=== PATIENT | female | born 1985 | race Asian ===

== ENCOUNTER 2024-07-28 10:33 | Emergency (ER) | payer BC, OTHER, SELFPAY ==
[2024-07-28 10:34] VITALS: BP 155/100
--- NOTE | 2024-07-28 11:33 | ED.GENMED ---
History of Present Illness
General
Chief Complaint: Crisis Evaluation
Source: patient and significant other
Exam Limitations: none and other (Language Line Bulgarian forepart reducer #[id number] utilized)
Time Seen by Provider: 07/28/24 10:58
Nursing documentation reviewed up to this point in time: agreed with
History of Present Illness
History of Present Illness:
Patient is a 39-year-old female with past medical history of schizophrenia on Abilify and hydroxyzine for the past 2 years presents to the emergency department accompanied by her and 2 children for evaluation. reports that the
patient has grown increasingly paranoid over the past 15 days. reports that the patient thinks that there are cameras in different things such as in their smoke detector in their home. also reports the patient has grown
increasingly suspicious of their very friendly neighbors. reports that the patient has been having more negative thoughts. reports the patient has also been calling the police multiple times a day to discuss mundane topics such as
why Sid was elected president and why her son is not getting taught Azeri in public school. reports that the police have been very nice to her and told him that [facility] has good psychiatric resources and advised him to bring
the patient here which he did today. been reports that the patient has never tried to hurt herself, himself or anyone else. He reports that he is not concerned for his safety or the kids safety. He is not concerned that the patient is
going to harm herself at all and denies that the patient has made statements about harming herself or any others or made any gestures indicating this. notes that the patient is also questioning whether she truly has schizophrenia and
whether she needs her medication. However, he reports that he feels confident that she has been taking her medication as prescribed. He notes the patient was hospitalized in the psychiatric unit for a month at [facility] approximately 2
years ago at which time she had been exhibiting similar behaviors.
Patient herself reports that she is frustrated that her is always home and trying to take care of her. He reports that he was not always like this. She reports that he she wanted to go on vacation this past summer but he would not take
her. She denies that she wants to hurt or harm herself in any way. She denies that she wants to hurt or harm anyone else. She also denies any symptoms such as fevers, chills, chest pain, shortness of breath, abdominal pain, nausea, vomiting,
change in her bowel habits.
notes that he did try to get in touch with the patient's mental health specialist but they could not get her in for a month. He also inquired on whether he could increase the patient's Abilify however they told him that he should not do it
without seeing a doctor first.
Past History
Past History
ED Past Medical History: Psychiatric (Schizophrenia)
ED Past Surgical History: None
Patient has exhibited threatening behavior?: No
Social History
Tobacco: Non-smoker
Alcohol: None
Drug: None
Personal:
Living: with family
Review of Systems
Review of Systems
Allergies reviewed?: Yes
Other source history: family
All Other Systems: ROS reviewed and negative except as documented in HPI and ROS
Constitutional: Reports no symptoms
EENT: Reports no symptoms
Respiratory: Reports no symptoms
Cardiac: Reports no symptoms
ABD/GI: Reports no symptoms
: Reports no symptoms
Musculoskeletal: Reports no symptoms
Skin: Reports no symptoms
Neurological: Reports no symptoms
Endocrine: Reports no symptoms
Hematologic/Lymphatic: Reports no symptoms
Psychiatric: Denies suicidal
Phy Exam
General Physical Exam
General Presentation: well appearing and no apparent distress
General Skin: warm and dry
General Habitus: normal
General Mental: alert
General Hydration: appears well hydrated
ENT Exam
ENT Exam: EOMI and normocephalic
Pulmonary Exam
Pulmonary Exam: no respiratory distress and no cough
Neurological Exam
Neurological Exam: alert, oriented x3, no motor deficits and speech normal
Musculoskeletal Exam
Musculoskeletal Exam: full ROM and no edema
Skin Exam
Skin Exam: normal color, warm/dry, no rash and no petechia
Psychiatric Exam
Psychiatric Exam: paranoia
Course
Orders/Labs/Results
Orders:
Orders
07/28/24 11:35
Crisis Consult Urgent
Reason for Consult: increasing paranoia, history of schizophrenia
07/28/24 12:30
Consult Psychiatry [PSYCHIATRY CONSULT] Urgent
Consulting Provider: Ashlee Peguero
Was physician already notified: Yes
Reason for consult: increased paranoia, schizophrenia
Vital Signs
Initial and Last Documented VS:
Initial Vital Signs
Temp Pulse Resp BP Pulse Ox
97.8 F 97 16 155/100 100
07/28/24 10:34 07/28/24 10:34 07/28/24 10:34 07/28/24 10:34 07/28/24 10:34
Last Documented Vital Signs
Temp Pulse Resp BP Pulse Ox
98 F 92 16 144/98 97
07/28/24 11:55 07/28/24 11:55 07/28/24 11:55 07/28/24 11:55 07/28/24 11:55
*Critical Care Note
Total Time (30-74mins, 75-104mins- exclusive of procedures): Not Applicable
Update Note
Update Note:
39-year-old female with history of schizophrenia presents to the emergency department accompanied by her and children for evaluation of increasing paranoia over the past 2 weeks according to her . Patient denies any other complaints
today. Patient specifically denies any SI or HI. On arrival, patient is moderately hypertensive, afebrile. On exam, patient is well-appearing, she appears appropriately groomed, appropriately dressed, and is in no acute distress, she does appear
to be mildly paranoid after speaking with her but at this time there is no indication that she is a harm to herself or others. No indication for 302 at this time. Patient seen and evaluated by crisis who agrees. Recommends consulting psychiatry
for medication review. At this time, the patient is safe for discharge to crisis for psychiatric consultation.
ED Attending Note
-
Portions of this chart may have been created with voice recognition software.� Occasional wrong word or��sound alike� substitutions may have occurred due to the inherent limitations of voice recognition software.
Discharge Plan
Departure
Patient Disposition: [facility]
Date of Disposition: 07/28/24
Time of Disposition: 12:45
Patient with high blood pressure during this ER visit?: Yes
Consults for patient: Crisis and Psychiatry
Condition: Good
Covid-19: Not Applicable
Discharge Problem:
Schizophrenia, Paranoia
Instructions: Schizophrenia - Discharge instructions
Prescriptions:
No Action
hydroxyzine HCl 25 mg Tablet
25 mg PO HS
aripiprazole 5 mg Tablet
5 mg PO DAILY
Referrals:
Melecio Thayer MD [Family Provider] - Follow up in 2-3 days
Activity Restrictions/Additional Instructions:
You were seen in the emergency department for having abnormal thoughts. While you were in the emergency department you were evaluated by our crisis team. They are recommending that you be evaluated by psychiatry which has been ordered. At this
time, we find no reason to keep you in the hospital. Please follow-up as an outpatient with both your primary care provider as well as your mental health specialist. Please return to the emergency department immediately if you begin to have
thoughts of harming yourself or anyone else, if you start to exhibit dangerous or concerning behaviors, or for any new worsening or concerning symptoms.
Interventions
Interventions:
*Risk Screen - Suicide Last Done: 07/28/24 10:34
*General Assessment Last Done: 07/28/24 10:34
*Neglect/Abuse Screening Last Done: 07/28/24 10:34
ED- Fall Risk Assessment Last Done: 07/28/24 11:55
*ED COVID-19 Vaccine History Last Done: 07/28/24 10:34
*Nursing Disposition Last Done: 07/28/24 13:15
ED-Psychological Assessment Last Done: 07/28/24 11:55
Discharge Date and Time
Discharge Date/Time: 07/28/24 13:15
Print Language: NORWEGIAN
[2024-07-28 11:55] VITALS: BP 144/98
[2024-07-28 12:00] VITALS: BMI 29.9
== END 2024-07-28 13:15 ==
LOC: EMR 10:33
PROVIDERS: CONSULT PHYSICIAN Physician Assistant Medical; EMERGENCY PHYSICIAN Emergency Medicine; FAMILY PHYSICIAN Internal Medicine
DX: F20.9 Schizophrenia, unspecified (principal); F22 Delusional disorders; R03.0 Elevated blood-pressure reading, without diagnosis of hypertension
CPT/HCPCS: 99283